=== PATIENT | male | born 1930 | race Caucasian/White ===

== ENCOUNTER 2018-07-28 10:14 | Inpatient (IN) ==
[2018-07-28 10:34] VITALS: BMI 14.3
--- NOTE | 2018-07-28 11:04 | ED.PDOC ---
General ED Provider: Dr. SHAYAN WATERS Chief Complaint: Weakness Stated Complaint: Weakness; short of air; left flank pain; hx of CA. Brought in by son ...has tried to keep at home as long as possible Time Seen by Physician: 10:15 Mode of Arrival: Wheelchair Information Source: Family Primary Care Provider: KAMERON CARLSON Nursing and Triage Documentation Reviewed and Agree: Yes Does patient meet sepsis criteria?: No System Inflammatory Response Syndrome: Not Applicable Sepsis Protocol: For patient's 13 years and over: Temp is 96.8 and below OR 101 and greater Pulse >90 BPM Resp >20/minute Acutely Altered Mental Status Are patient's symptoms suggestive of a new infection, such as: -Pneumonia -Skin, Soft Tissue -Endocarditis -UTI -Bone, Joint Infection -Implantable Device -Acute Abdominal Infection -Wound Infection -Meningitis -Blood Stream Catheter Infection -Unknown Respiratory Complaint Exam - Shortness of Air Complaint/Exam Onset/Duration: Steady decline for several months; son has tried to keep at home. Symptoms Are: Still present Timing: Constant Initial Severity: Moderate Current Severity: Moderate Character: Reports: Dyspnea at rest, Dyspnea on exertion Aggravating: Reports: Movement Alleviating: Reports: None Review of Systems - Review Of Systems Constitutional: Reports: Malaise, Weakness Respiratory: Reports: Short of air Cardiac: Reports: No symptoms Musculoskeletal: Reports: Back pain All Other Systems: Reviewed and Negative Past Medical History - Past Medical History Previously Healthy: No (Declining state of health; R lung mass) Endocrine: Reports: None Cardiovascular: Reports: None Respiratory: Reports: None (R upper lung mass), Unknown Hematological: Reports: None Gastrointestinal: Reports: None Genitourinary: Reports: Other (BPH) Neuro/Psych: Reports: None Musculoskeletal: Reports: None Cancer: Reports: Lung (Probable) - Surgical History General Surgical History: Reports: None - Family History Family History: Reports: Unknown - Social History Smoking Status: Current every day smoker, Heavy tobacco smoker Hx Substance Use: No Alcohol Screening: None Physical Exam - Physical Exam Appearance: Well-appearing (Hard of Hearing), Thin Ill-appearing: Mild Pain Distress: None Eyes: VIPIN ENT: Oropharynx normal Neck: Supple Respiratory: Airway patent, Breath sounds clear, Respirations nonlabored Cardiovascular: RRR, Pulses normal GI/: Soft, Nontender Musculoskeletal: Normal strength, ROM intact Skin: Warm, Dry Neurological: Sensation intact, Motor intact, Alert Psychiatric: Affect appropriate, Mood appropriate (pleasant; cooperative) Interpretation - Radiology Interpretation Radiology Interpretation By: Radiologist Xray Comments: Right suprahilar mass may be increased from prior. Emphysemia - EKG Interpretation Time of EKG #1: 10:42 Rate: Normal Rhythm: Sinus Ectopy: PVCs (Occaional) ST Segment: Other (ST elevation Lead II and III) Physician Notification - Case Discussed Physician Notified: Dr Carlson Time of Notification: 12:50 (Discussed admission) Critical Care Note - Critical Care Note Total Time (mins): 35 Comments: Review of labs, EKG, Chest XRay, DNR status and discussion with attending for admission Course - Course Hematology/Chemistry: 07/28/18 11:05 07/28/18 11:05 Orders, Labs, Meds: Lab Review 07/28/18 07/28/18 07/28/18 10:39 11:05 11:05 WBC 9.34 RBC 5.03 Hgb 15.8 Hct 50.0 MCV 99.4 H MCH 31.4 H MCHC 31.6 L RDW Coeff of Seamus 14.5 Plt Count 290 Immature Gran % (Auto) 1.8 Neut % (Auto) 84.5 Lymph % (Auto) 6.6 L [place] % (Auto) 6.9 Eos % (Auto) 0.0 Baso % (Auto) 0.2 Immature Gran # (Auto) 0.2 Neut # (Auto) 7.9 H Lymph # (Auto) 0.6 [place] # (Auto) 0.6 Eos # (Auto) 0.0 Baso # (Auto) 0.0 Puncture Site R brach O2 Saturation 96.0 ABG pH 7.47 H ABG pCO2 39.1 ABG pO2 78.0 L ABG HCO3 28.7 H ABG Total CO2 30 H ABG Base Excess 5 H Cam Test + FiO2 % 21.0 Sodium 146.4 H Potassium 4.20 Chloride 106.9 Carbon Dioxide 36.2 H Anion Gap 7.50 BUN 45.5 H Creatinine 1.26 H Estimated GFR (MDRD) 54.00 BUN/Creatinine Ratio 36.11 Glucose 155.5 H Calcium 9.72 Total Bilirubin 0.61 AST 71.3 H ALT 56.9 H Alkaline Phosphatase 113.6 Troponin I 0.055 Total Protein 6.54 Albumin 3.27 L Globulin 3.27 Albumin/Globulin Ratio 1.00 Orders Category Date Time Status ADMIT PATIENT INPATIENT .TO MEDS[facility] (MONITORED BED) ADMISSION 07/28/18 12: 40 Active ABG DRAW REQUEST Routine CARDIO 07/28/18 10:39 Completed EKG-(ED ONLY) Stat CARDIO 07/28/18 10:28 Completed EKG-(IP & OP ONLY) DAILY CARDIO 07/29/18 06:00 Ordered EKG-(IP & OP ONLY) DAILY CARDIO 07/30/18 06:00 Ordered OXYGEN Routine CARDIO 07/28/18 12:43 Active ACTIVITY .Complete BR CARE 07/28/18 12:41 Active TELEMETRY MONITORING TELE CARE 07/28/18 12:41 Active VITAL SIGNS Q8HR CARE 07/28/18 12:41 Active ABG Stat LAB 07/28/18 10:39 Completed BLOOD CULTURE (ED ONLY) Stat LAB 07/28/18 12:50 Received BLOOD CULTURE Stat LAB 07/28/18 12:50 Received CBC W/ AUTO DIFF DAILY@0600 LAB 07/29/18 06:00 Ordered CBC W/ AUTO DIFF DAILY@0600 LAB 07/30/18 06:00 Ordered CBC W/ AUTO DIFF Stat LAB 07/28/18 11:05 Completed COMPREHENSIVE METABOLIC PANEL DAILY@0600 LAB 07/29/18 06:00 Ordered COMPREHENSIVE METABOLIC PANEL DAILY@0600 LAB 07/30/18 06:00 Ordered COMPREHENSIVE METABOLIC PANEL Stat LAB 07/28/18 11:05 Completed TROPONIN I Q8H LAB 07/28/18 11:05 Received TROPONIN I Q8H LAB 07/29/18 02:45 Ordered TROPONIN I Stat LAB 07/28/18 11:05 Completed URINALYSIS C & S IF INDICATED Stat LAB 07/28/18 10:27 Uncollected Tamsulosin HCl [Flomax] MEDS 07/28/18 21:00 Active 0.4 mg PO BEDTIME CHEST, 1V AP ONLY Stat RADS 07/28/18 10:28 Completed Medications Generic Name Dose Route Start Last Admin Trade Name Freq PRN Reason Stop Dose Admin Sodium Chloride 1,000 mls @ 100 mls/hr 07/28/18 13:30 Sodium Chloride IV .Q10H JEVON Tamsulosin HCl 0.4 mg 07/28/18 21:00 Flomax PO BEDTIME JEVON Vital Signs: Temp Pulse Resp BP Pulse Ox 07/28/18 10:17 98.3 F 78 20 76/47 L 68 L Departure - Departure Time of Disposition: 13:00 Disposition: ADMITTED INPATIENT Discharge Problem: Dehydration, Failure to thrive Condition: Stable Pt referred to PMD for follow-up: Yes (Follow up as needed) IPMP verified?: No (NA) Allergies/Adverse Reactions: Allergies No Known Allergies Allergy (Unverified 07/28/18 13:03) Home Medications: Ambulatory Orders Tamsulosin HCl [Flomax] 0.4 mg PO BEDTIME 07/28/18
--- NOTE | 2018-07-28 11:06 | DI ---
EXAM: Chest one view HISTORY: Short of air COMPARISON: 10/13/2017 TECHNIQUE: Single view of the chest was performed FINDINGS: Redemonstration of a right suprahilar mass that may be increased. Heart mildly enlarged. This appears increased from prior examination, this may be accentuated by position. Cannot exclude pericardial effusion. Atherosclerosis. Trace right pleural effusion. No visible pneumothorax. No de finite airspace consolidation. Emphysema. IMPRESSION: 1. Redemonstration of right suprahilar mass that may be increased. 2. Heart mildly enlarged. This appears increased from prior examination, this may be accentuated by position. Cannot exclude pericardial effusion. 3. Trace right pleural effusion. 4. Emphysema.
[2018-07-28] MEDS: SODIUM CHLORIDE 1,000 ML IV SCH (14:11)
--- NOTE | 2018-07-28 16:46 | CT ---
EXAM: CT of the abdomen pelvis without contrast History: Abdominal pain. Left flank pain Comparison: CT abdomen pelvis 07/07/2012 Technique: Multiplanar CT images through the abdomen pelvis were obtained without the administration of IV contrast Findings: Limited evaluation without IV contrast. Emphysema seen within the lower lungs. Small bilat eral pleural effusions. There is body wall edema. No acute osseous abnormalities. Osteopenia. Larg e pericardial effusion. A few small hepatic cysts. Calcified granulomas within the spleen. No renal stones and no hydroneph rosis. There is mesenteric edema. Bifurcating abdominal aortic stent graft. The aneurysm sac measu res 7.3 cm in caliber. Cannot evaluate for endoleak without IV contrast. No bladder wall thickening . Prostatic calcifications. There are mildly distended loops of both large and small bowel. There is a left inguinal hernia containing bowel loops extending into the scrotum. No free air. Impression: 1. Left inguinal hernia containing bowel extending into the scrotum. Cannot exclude early partial b owel obstruction as the are mildly dilated loops of both large and small bowel present. Follow-up re commended. 2. 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 Cannot evalu ate for endoleak without IV contrast. 3. Large pericardial effusion. 4. Body wall edema and mesenteric edema. 5. Small bilateral pleural effusions.
[2018-07-29] MEDS ORDERED: HALDOL IM STA (00:14)
[2018-07-29] MEDS: FLOMAX PO SCH ×2 (00:19→23:16)
[2018-07-29] MEDS: SODIUM CHLORIDE 1,000 ML IV SCH ×2 (01:11→16:21)
[2018-07-29] MEDS: NICODERM 21 MG TD SCH (08:35)
[2018-07-30] MEDS: SODIUM CHLORIDE 1,000 ML IV SCH ×4 (01:15→20:44)
[2018-07-30] MEDS: NICODERM 21 MG TD SCH (08:30)
[2018-07-30] MEDS ORDERED: LANOXIN IVP STA (13:27)
[2018-07-30] MEDS: CARDIZEM PO SCH ×3 (13:40→20:44)
[2018-07-30] MEDS ORDERED: LANOXIN IVP ONE (14:45)
[2018-07-30] MEDS: FLOMAX PO SCH (20:44)
[2018-07-31] MEDS: SODIUM CHLORIDE 1,000 ML IV SCH ×3 (02:40→09:50)
[2018-07-31] MEDS: NICODERM 21 MG TD SCH (09:02)
[2018-07-31] MEDS: CARDIZEM PO SCH ×2 (09:02→14:14)
[2018-07-31 09:50] VITALS: TEMP 98.4
--- NOTE | 2018-07-31 09:58 | PCM.PROG ---
Attending Provider: ATTENDING PROVIDER: Dr. KAMERON CARLSON This patient is seen with Vickie Ortiz, Nurse Practitioner. DATE OF SERVICE: 07/31/18 SUBJECTIVE: This 87 year old WHITE/ M was hospitalized 07/28/18. The patient is lying in bed resting comfortably. He had an episode of atrial fibrillation with RVR yesterday, rate controlled today in sinus rhythm. He has had some hypotension, still not eating well. Speech consult today. REVIEW OF SYSTEMS: CONSTITUTIONAL: Weakness. No night sweats. No malaise, lethargy. No fever or chills. HEENT: Eyes: No visual changes. No eye pain. No eye discharge. ENT: No runny nose. No epistaxis. No sinus pain. No odynophagia. No congestion. RESPIRATORY: Cough and congestion. No hemoptysis. No shortness of breath. CARDIOVASCULAR: No angina symptoms. No CHF symptoms. No atypical chest pain for CAD. No palpitations. No orthopnea.. GASTROINTESTINAL: No abdominal pain. No nausea or vomiting. No diarrhea or constipation. No hematemesis. No hematochezia. GENITOURINARY: No urgency. No frequency. No dysuria. No hematuria. No obstructive symptoms. No discharge. No pain. No significant abnormal bleeding. MUSCULOSKELETAL: No musculoskeletal pain; no joint swelling. NEUROLOGICAL: Resting comfortably. No headache. No neck pain. No syncope. No seizures. No dizziness. PSYCHIATRIC: Not anxious. No depression. No suicidal thoughts. No homicidal thoughts. SKIN: No rash. No lesions. No wounds. ENDOCRINE: No unexplained weight loss. No weight gain. HEMATOLOGIC/LYMPHATIC: No anemia. No purpura. No petechiae. No prolonged or excessive bleeding. No palpable lymph nodes. PHYSICAL EXAMINATION: GENERAL: The patient is resting, lying in bed in no distress. VITAL SIGNS: Temperature 97.9 F, Pulse 68, Respiratory Rate 22, BP 95/69, Pulse Ox 96% HEENT: Head normocephalic, atraumatic. Eyes: Extraocular muscles are intact. Pupils are equal, round and reactive to light and accommodation. Ears: No lesions. Nose appeared normal. Throat: No exudate or erythema. NECK: Supple. No JVD, no carotid bruit. No lymphadenopathy or thyromegaly. LUNGS: Diminished breath sounds with upper airway congestion. Percussion note normal. Chest symmetrical. HEART: S1, S2, no S3. No murmurs. No cyanosis or clubbing. No ascites. Pulses: Dorsalis pedis and posterior tibial pulses +1 to +2 both sides. ABDOMEN: Soft. Non-tender. Bowel sounds active. No CVA tenderness. No mass felt. EXTREMITIES: No edema. Full range of motion of all extremities, equal. NEUROLOGIC: No focal deficit. Cranial nerves II through XII are grossly intact. No headache, no double vision or headache. SKIN: Not dry. Intact. Turgor-normal. LYMPHATIC: No palpable lymph nodes/no lymphedema. MUSCULOSKELETAL: Normal joints with no swelling. Muscle tone is normal. LAB REVIEW: 07/31/18 06:29 07/31/18 06:29 07/31/18 06:29: Sodium 139.1, Potassium 3.93, Chloride 106.9, Carbon Dioxide 33.8 H, Anion Gap 2.33, BUN 28.6 H, Creatinine 0.94, Estimated GFR (MDRD) 76.00 , BUN/Creatinine Ratio 30.42, Glucose 102.0, Calcium 8.48, Total Bilirubin 0.45 , AST 44.8, ALT 50.4 H, Alkaline Phosphatase 82.2, Total Protein 5.48 L, Albumin 2.56 L, Globulin 2.92, Albumin/Globulin Ratio 0.87 07/31/18 06:29: WBC 7.29, RBC 4.01 L, Hgb 12.6 L, Hct 40.2 L, MCV 100.2 H, MCH 31.4 H, MCHC 31.3 L, RDW Coeff of Seamus 14.3, Plt Count 196, Immature Gran % (Auto ) 1.6, Neut % (Auto) 78.7, Lymph % (Auto) 8.4 L, [place]Brien % (Auto) 10.8 H, Eos % ( Auto) 0.4, Baso % (Auto) 0.1, Immature Gran # (Auto) 0.1, Neut # (Auto) 5.7, Lymph # (Auto) 0.6, [place] # (Auto) 0.8, Eos # (Auto) 0.0, Baso # (Auto) 0.0 ASSESSMENT: 1. DEHYDRATION - IMPROVING 2. FAILURE TO THRIVE 3. RIGHT HILAR MASS 4. HYPOTENSION PLAN: 1. Decrease IV fluids to 75 mL/hr. 2. The patient does not want any further intervention. The main goal is to be with his at [facility]. He has known about his lung cancer for some time and declined treatment. He declines treatment for any further medical problems. Plan and coordination of the patient's care discussed in the presence of [facility] Nurse and nurse. CONDITION: Stable SCRIBED BY: ADOLFO PAGE Product Steward scribed while in presence of service performed by Dr. Carlson/Vickie Ortiz APRN on 07/31/18 ([id number])
[2018-07-31] MEDS ORDERED: SODIUM CHLORIDE 1,000 ML IV SCH (10:00)
[2018-07-31] MEDS ORDERED: ULTRAM PO PRN (11:29)
[2018-07-31] MEDS ORDERED: ULTRAM ONE (11:40)
--- NOTE | 2018-07-31 13:35 | CM.DICTOOL ---
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 CONTINUED TOBACCO USE, HEAVY LAST VITALS Temp Pulse Resp BP Pulse Ox 98.4 F 63 18 108/73 93 L 07/31/18 09:49 07/31/18 09:49 07/31/18 09:49 07/31/18 09:49 07/31/18 10:00 TAKE THESE MEDICATIONS AT THE SENIOR LIVING Diltiazem HCl (Cardizem) 30 mg PO TID [facility] Last Admin: 07/31/18 09:02 Dose: 30 mg Tamsulosin HCl (Flomax) 0.4 mg PO BEDTIME [facility] Last Admin: 07/30/18 20:44 Dose: 0.4 mg Tramadol HCl (Ultram) 50 mg PO TID PRN PRN Reason: Analgesia Last Admin: 07/31/18 11:42 Dose: 50 mg ALLERGIES No Known Allergies Allergy (Unverified 07/28/18 13:03) NEW PRESCRIPTIONS: Diltiazem HCl [Cardizem] 30 mg PO TID #90 tablet 07/31/18 Tramadol HCl [Ultram] 50 mg PO Q8H PRN #90 tablet 07/31/18 SMOKING: CURRENT HEAVY SMOKER THE PATIENT IS AWARE OF THE ADDED RISK CONTINUATION OF SMOKING POSES TO HER CARDIOPULMONARY HEALTH. HE IS AWARE OF THE BENEFITS OF COMPLETE CESSATION WELL. HE HAS NOT VERBALIZED ANY INTENTION TO STOP SMOKING. WE WILL CONTINUE TO PROVIDE ENCOURAGEMENT AND REINFORCEMENT OF PRIOR TEACHING FOR COMPLETE SMOKING CESSATION. DISEASE SPECIFIC EDUCATION: DEHYDRATION FAILURE TO THRIVE PAROXYSMAL A-FIB WITH RVR HYPOTENSION INCREASING RIGHT SUPRAHILAR LUNG MASS (FAMILY) EMPHYSEMA ANEURYSMAL SAC AT THE AAA GRAFT SITE 7.3 CM'S (FAMILY) LAB REVIEW: 07/31/18 06:29 07/31/18 06:29 07/31/18 06:29: Sodium 139.1, Potassium 3.93, Chloride 106.9, Carbon Dioxide 33.8 H, Anion Gap 2.33, BUN 28.6 H, Creatinine 0.94, Estimated GFR (MDRD) 76.00 , BUN/Creatinine Ratio 30.42, Glucose 102.0, Calcium 8.48, Total Bilirubin 0.45 , AST 44.8, ALT 50.4 H, Alkaline Phosphatase 82.2, Total Protein 5.48 L, Albumin 2.56 L, Globulin 2.92, Albumin/Globulin Ratio 0.87 07/31/18 06:29: WBC 7.29, RBC 4.01 L, Hgb 12.6 L, Hct 40.2 L, MCV 100.2 H, MCH 31.4 H, MCHC 31.3 L, RDW Coeff of Seamus 14.3, Plt Count 196, Immature Gran % (Auto ) 1.6, Neut % (Auto) 78.7, Lymph % (Auto) 8.4 L, [place] % (Auto) 10.8 H, Eos % ( Auto) 0.4, Baso % (Auto) 0.1, Immature Gran # (Auto) 0.1, Neut # (Auto) 5.7, Lymph # (Auto) 0.6, [place] # (Auto) 0.8, Eos # (Auto) 0.0, Baso # (Auto) 0.0 PLAN: [facility], 07/31/18 MEDICATIONS: DILTIAZEM HCL (CARDIZEM) 30 MG PO TID SCHEDULED TAMSULOSIN HCL (FLOMAX) 0.4 MG PO AT BEDTIME SCHEDULED TRAMADOL HCL (ULTRAM) 50 MG PO TID PRN PAIN ACTIVITIES MAY PARTICIPATE IN SENIOR LIVING ACTIVITY PROGRAM TOLERATED PT/OT PLEASE EVALUATE AND TREAT INDICATED DIET REGULAR TOLERATED ASPIRATION PRECAUTIONS VS TWICE DAILY OTHER OXYGEN TO KEEP SATS GREATER THAN OR EQUAL TO 91% (2L/NC) PULSE OXIMETRY PRN SUMMARY THE PATIENT IS ALERT AND ORIENTED X3. HIS HEARING IS IMPAIRED BUT HE IS ABLE TO MAKE HIS WANTS AND NEEDS KNOWN. HIS DAUGHTER, MADDIE NGUYEN/POA, ASSISTS WITH DECISION MAKING. HE HAS BEEN LIVING AT HOME ALONE. HE HAS BECOME MORE WEAKENED AND DEPENDENT ON OTHERS FOR ADL'S. HE HAS DECIDED HE WOULD LIKE TO BE [facility] WHERE HIS SPOUSE IS ALSO A RESIDENT. FAMILY ARE AWARE AND ARE AGREEABLE TO ABIDE BY HIS WISHES. THE SKIN TURGOR IS INTACT BUT IS THIN AND BECOMING FRAGILE. NUTRITIONAL AND HYDRATION STATUS HAVE IMPROVED SINCE ADMISSION. HOWEVER, THE PATIENT'S APPETITE WAXES AND WANES. HE AND THE DAUGHTER/POA WOULD LIKE FOR HIM TO BE ABLE TO EAT WHAT HE IS ABLE TO TOLERATE RATHER THAN TO FOLLOW A TEXTURE/ CONSISTENCY RECOMMENDATION. WE WILL ABIDE BY THE PATIENT'S WISHES IN AN EFFORT TO IMPROVE HIS NUTRITIONAL STATUS. WE WILL REQUEST CARE BE TAKEN TO PREVENT ASPIRATION DURING HIS SENIOR LIVING STAY. THE PATIENT AND FAMILY WOULD LIKE FOR THE PATIENT TO BE ABLE TO BECOME STRONGER. A PT/OT EVALUATION HAS BEEN REQUESTED FOR POSSIBLE SERVICES AT THE SENIOR LIVING. WE WILL FOLLOW MR. HERNANDEZ DURING HIS STAY AT [facility]. CURRENT CODE STATUS DO NOT RESUSCITATE RUBEN MORIN APRN KAMERON CARLSON M.D.
[2018-07-31 14:42] VITALS: BP 100/67
--- NOTE | 2018-08-02 13:31 | DS ---
DATE OF SERVICE: 07/31/18 FINAL DIAGNOSIS: 1. DEHYDRATION, IMPROVING 2. FAILURE TO THRIVE 3. CARDIOMEGALY, MILD 4. LARGE PERICARDIAL EFFUSION PER CT ABD/PELVIS, 07/28/18 5. SMALL BILATERAL PLEURAL EFFUSIONS 6. BODY WALL AND MESENTERIC EDEMA 7. PAROXYSMAL ATRIAL FIBRILLATION WITH RAPID VENTRICULAR RATE (13-140'S) 8. HYPOTENSION 9. INTERMITTENT CONFUSION 10. RIGHT SUPRAHILAR LUNG MASS, INCREASING PER CHEST X-RAY AT [facility] 07/28/18 11. EMPHYSEMA 12. BPH 13. LARGE LEFT INGUINAL HERNIA 14. AAA STENT, 6 YEARS AGO 15. 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 CONTINUED TOBACCO USE, HEAVY LAST VITAL SIGNS: Temperature 98.4, pulse 63, respiratory rate 18, BP 108/73, pulse ox 93L. DISCHARGE INSTRUCTIONS: 1. Discharge to [facility] today, 07/31/18. 2. Vital signs twice daily. 3. Oxygen to keep sats greater than or equal to 91% (2L/NC) 4. Pulse oximetry p.r.n. MEDICATIONS AT DISCHARGE: Diltiazem (Cardizem) 30 mg p.o. t.i.d. JEVON Tamsulosin (Flomax) 0.4 mg p.o. bedtime JEVON Tramadol (Ultram) 50 mg p.o. t.i.d. p.r.n. NEW PRESCRIPTIONS: Diltiazem 30 mg p.o. t.i.d. Tramadol 50 mg p.o. q.8h p.r.n. DIET INSTRUCTIONS: Regular as tolerated. Aspiration precautions. ACTIVITY: May participate in snf activity program as tolerated. PT/OT please evaluate and treat as indicated. SMOKING: Current heavy smoker. The patient is aware of the added risk continuation of smoking poses to her cardiopulmonary health. He is aware of the benefits of complete cessation as well. He has not verbalized any intention to stop smoking. We will continue to provide encouragement and reinforcement of prior teaching for complete smoking cessation. 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 We see his in the snf. He use to see Dr. Garcia as a medical provider, was diagnosed with lung cancer, didn't go to the doctor for some time. He came into the emergency room, was dehydrated. He had been unable to eat for several days. He had developed diarrhea because he had taken too many laxatives for constipation. CT of the chest revealed that he had a large pericardial effusion with a right hilar lung mass which has increased in size. CT of the abdomen showed large left inguinal hernia. He had an aortic stent 6 years ago and a graft site is now 7.3 cm. He is a heavy tobacco smoker. All of this was explained to him in detail. He is alert and oriented times three. He was admitted, placed on IV fluids, NS at 83 cc/hr. BUN and creatinine were significantly elevated on admission. BUN of 39. Over the course of several days with slow IV fluids, his kidney function improved. We started him on Protonix. Yesterday, he developed atrial fibrillation with rapid ventricular rate. He was given a one time dose of Digoxin, converted back to normal sinus rhythm. Dr. Peraza placed him on Cardizem 30 mg t.i.d. He has been somewhat hypotensive with blood pressure lowest 94/60 so we continued his IV fluids increased at 100. This morning his kidney function is normal. His blood pressure is 108/73. He is alert and oriented times three. All of his medical conditions have been discussed with both he and his daughter who is the POA in great detail. They decline any further medical treatment for the pericardial effusion as well as the aneursym along with the lung cancer. Both he and his daughter state that he is too old to do any sort of medical treatment. He does not want to know the prognosis. He wants to go to the snf at [facility] and be with his who is a resident there, whom we also see. The nurse discussed in detail with the daughter, who is the POA by herself. She definitely understands all of his medical conditions, that is failing to thrive at this time, that hospice or at least paliative care is somewhere in the very near future for them. She again declines any further medical treatment for the pericardial effusions, pleural effusions. They decline any sort of blood thinner for the atrial fibrillation. No treatment for lung cancer. They decline any sort of referral for oncology or pulmonology, decline any surgical referral for the inguinal hernia, any sort of vascular referral they decline for the aneurysm site of 7.3 cm so they all have decided that it is best to try and preserve his quality of life as best they can and we are all in agreement with this. He is stable today. He has been eating about 50% of his meals. He has been up and about. He wishes to go to the snf. He wishes to continue smoking. This has all been discussed with him. He has not complained of pain until last night and started him on Ultram 50 mg t.i.d. p.r.n. He will go to snf with this. Again, labs look stable. White count 7.2, hemoglobin 12.6, hematocrit 40.2, platelets 196. BUN improved at 28, creatinine 0.9, sodium 139, potassium 3.9. He is going to [facility] on Cardizem 30 mg t.i.d., Flomax at bedtime and Ultram 50 mg p.o. t.i.d. p.r.n. I will continue to follow him there. He will have a repeat CBC and CMP in one week. Again, both the patient and family demonstrate understanding. The patient will continue to be a DNR at the snf. TIME SPENT: More than 60 minutes. JAYLEN
--- NOTE | 2018-08-02 13:40 | PN ---
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 The patient is DNR, demented. He is not restless like what he was. He is not coughing like a couple of days ago when he was hospitalized. REVIEW OF SYSTEMS: CONSTITUTIONAL: No night sweats. No fatigue, malaise, lethargy. No fever or chills. HEENT: Eyes: No visual changes. No eye pain. No eye discharge. ENT: No runny nose. No epistaxis. No sinus pain. No sore throat. No odynophagia. No congestion. RESPIRATORY: No cough, no congestion. No hemoptysis. No shortness of breath. CARDIOVASCULAR: No angina symptoms. No CHF symptoms. No atypical chest pain for CAD. No palpitations. No orthopnea. GASTROINTESTINAL: No abdominal pain. No nausea or vomiting. No diarrhea or constipation. No hematemesis. No hematochezia. GENITOURINARY: No urgency. No frequency. No dysuria. No hematuria. No obstructive symptoms. No discharge. No pain. No significant abnormal bleeding. MUSCULOSKELETAL: No musculoskeletal pain; no joint swelling. NEUROLOGICAL: Confusion. No headache. No neck pain. No syncope. No seizures. No dizziness. PSYCHIATRIC: Not anxious. No depression. No suicidal thoughts. No homicidal thoughts. SKIN: No rash. No lesions. No wounds. ENDOCRINE: No unexplained weight loss. No weight gain. HEMATOLOGIC/LYMPHATIC: No anemia. No purpura. No petechiae. No prolonged or excessive bleeding. No palpable lymph nodes. PHYSICAL EXAMINATION: VITAL SIGNS: Temperature 97.8, pulse 70, respiratory rate 20, BP 90/66, pulse ox 100% on 2L. HEENT: Head normocephalic, atraumatic. Eyes: Extraocular muscles are intact. Pupils are equal, round and reactive to light and accommodation. Ears: No lesions. Nose appeared normal. Throat: No exudate or erythema. NECK: Supple. No JVD, no carotid bruit. No lymphadenopathy or thyromegaly. LUNGS: Decreased breath sounds. Clear to auscultation. Percussion note normal. Chest symmetrical. HEART: S1, S2, no S3. No murmurs. No cyanosis or clubbing. No ascites. Pulses: Dorsalis pedis and posterior tibial pulses +1 to +2 both sides. ABDOMEN: Soft. The patient is emaciated with BMI of 14. Bowel sounds active. No CVA tenderness. No mass felt. EXTREMITIES: No edema. Full range of motion of all extremities, equal. NEUROLOGIC: No focal deficit. Cranial nerves II through XII are grossly intact. No headache, no double vision or headache. SKIN: Not dry. Intact. Turgor - normal. LYMPHATIC: No palpable lymph nodes/no lymphedema. MUSCULOSKELETAL: Normal joints with no swelling. Muscle tone is normal. LABS: Hemoglobin 12.2, hematocrit 40, WBC 6,200, normal differential. Creatinine 1, BUN 36, potassium 4. ASSESSMENT/PLAN: 1. END-STAGE CHRONIC LUNG DISEASE WITH CA OF THE LUNG 2. DEMENTIA 3. THIS MORNING THE PATIENT HAD A RATE OF 130 TO 140 WITH ATRIAL FIB, PAT LIKELY AND HAS BEEN GIVEN LANOXIN 0.25 TWO TIMES, A TOTAL OF 0.5 WITH 30 MG CARDIZEM T.I.D. THE PATIENT'S BLOOD PRESSURE IS BORDERLINE SO UNABLE TO PUSH ANY MORE MEDICATION TO SLOW HIS VENTRICULAR RESPONSE. IN ANY CASE, HE IS COMFORTABLE. HE IS DNR. WILL CONTINUE TO MONITOR HIM. 4. THE PATIENT IS ON STEROIDS, OXYGEN, NEBS. CONDITION: STABLE TIME SPENT: More than 30 minutes. Plan and coordination of the patient's care discussed in the presence of nurse. JAYLEN
--- NOTE | 2018-08-02 13:47 | PN ---
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 The patient has dementia, unable to swallow properly, unable to evaluate his status properly because the patient is unable to follow instruction at the present time. The patient at night was very restless, took the IV's out and telemetry out. He was given Haldol and after that he has slept well. REVIEW OF SYSTEMS: CONSTITUTIONAL: No night sweats. No fatigue, malaise, lethargy. No fever or chills. HEENT: Eyes: No visual changes. No eye pain. No eye discharge. ENT: No runny nose. No epistaxis. No sinus pain. No sore throat. No odynophagia. No congestion. RESPIRATORY: No cough, no congestion. No hemoptysis. No shortness of breath. CARDIOVASCULAR: No angina symptoms. No CHF symptoms. No atypical chest pain for CAD. No palpitations. No orthopnea. GASTROINTESTINAL: No abdominal pain. No nausea or vomiting. No diarrhea or constipation. No hematemesis. No hematochezia. GENITOURINARY: No urgency. No frequency. No dysuria. No hematuria. No obstructive symptoms. No discharge. No pain. No significant abnormal bleeding. MUSCULOSKELETAL: No musculoskeletal pain; no joint swelling. NEUROLOGICAL: Sleepy, disoriented, not in distress. No headache. No neck pain. No syncope. No seizures. No dizziness. PSYCHIATRIC: Not anxious. No depression. No suicidal thoughts. No homicidal thoughts. SKIN: No rash. No lesions. No wounds. ENDOCRINE: No unexplained weight loss. No weight gain. HEMATOLOGIC/LYMPHATIC: No anemia. No purpura. No petechiae. No prolonged or excessive bleeding. No palpable lymph nodes. PHYSICAL EXAMINATION: GENERAL: The patient is sleepy, disoriented, not in distress. VITAL SIGNS: Temperature 97.1, pulse 60, respiratory rate 18, BP 127/81, pulse ox 100%. HEENT: Head normocephalic, atraumatic. Eyes: Extraocular muscles are intact. Pupils are equal, round and reactive to light and accommodation. Ears: No lesions. Nose appeared normal. Throat: No exudate or erythema. NECK: Supple. No JVD, no carotid bruit. No lymphadenopathy or thyromegaly. LUNGS: Decreased breath sounds with mild wheeze. Percussion note normal. Chest symmetrical. HEART: S1, S2, no S3. No murmurs. No cyanosis or clubbing. No ascites. Pulses: Dorsalis pedis and posterior tibial pulses +1 to +2 both sides. ABDOMEN: Soft. Nontender. Bowel sounds active. No CVA tenderness. No mass felt. EXTREMITIES: No edema. Full range of motion of all extremities, equal. NEUROLOGIC: No focal deficit. Cranial nerves II through XII are grossly intact. No headache, no double vision or headache. SKIN: Not dry. Intact. Turgor - normal. LYMPHATIC: No palpable lymph nodes/no lymphedema. MUSCULOSKELETAL: Normal joints with no swelling. Muscle tone is normal. ASSESSMENT: 1. CA OF THE LUNG WITH METS 2. DEMENTIA 3. CHRONIC LUNG DISEASE 4. DIFFICULTY SWALLOWING The patient is DNR. The patient had questionable rise in troponin with the abnormal EKG but I think EKG shows ST elevation with J-junction on inferior leads, unchanged EKG from yesterday. I don't think the patient had acute myocardial event. PLAN: 1. Restart the IV with hydration. 2. Will evaluate his swallowing status which would be done on Tuesday, that is day after tomorrow. Until that will give pureed thickened liquids. The patient has chronic cough with aspiration. TIME SPENT: More than 30 minutes. Plan and coordination of the patient's care discussed in the presence of nurse. JAYLEN
--- NOTE | 2018-08-02 13:50 | PN ---
DATE OF SERVICE: 07/28/18 SUBJECTIVE: The patient was seen and examined in the room. The patient is coughing more or less constantly, seems like aspiration is causing the cough. He is unable to swallow properly. He seems to be oriented to place but not to person. The patient was seen and examined with the nurse practitioner and History and Physical was done. The patient has end-stage chronic lung disease with CA of the lung with right hilar mass. The patient's family and the patient had decided not to pursue any further treatment. The patient is DNR. Hospice is under consideration. TIME SPENT: More than 30 minutes. Plan and coordination of the patient's care discussed in the presence of nurse. JAYLEN
--- NOTE | 2018-08-03 11:56 | HP ---
DATE OF SERVICE: 07/28/18 HISTORY OF PRESENT ILLNESS: This is an 87-year-old white male who is a new patient to us. He has been residing at home alone. He in the past has seen Dr. Garcia but hasn't seen him for some time. He has a known right upper lobe lung cancer for which he declines any treatment. He is brought to the emergency room today because he has been suffering from constipation, was drinking a lot of Milk of Magnesia, self medicating at home and now has developed diarrhea, is extremely weak. We have agreed to take care of him as his end result would like to be to go to the detention, [facility] to be with his , Mariln, who is our patient at the detention. PAST MEDICAL HISTORY: Right lung mass - he declines any treatment Hypertension - he declines any treatment BPH COPD Heavy tobacco smoker Decline in function PAST SURGICAL HISTORY: Not known REVIEW OF SYSTEMS: CONSTITUTIONAL: Positive for weakness, decline in function. No night sweats. No malaise, lethargy. No fever or chills. HEENT: Eyes: No visual changes. No eye pain. No eye discharge. ENT: No runny nose. No epistaxis. No sinus pain. No sore throat. No odynophagia. No ear pain. No congestion. RESPIRATORY: Positive for cough and shortness of breath. No hemoptysis. CARDIOVASCULAR: No angina symptoms. No CHF symptoms. No atypical chest pain for CAD. No palpitations. No PND. No orthopnea. GASTROINTESTINAL: Positive for nausea, diarrhea and constipation. No abdominal pain. No vomiting. No hematemesis. No hematochezia. GENITOURINARY: No urgency. No frequency. No dysuria. No hematuria. No obstructive symptoms. No discharge. No pain. No significant abnormal bleeding. MUSCULOSKELETAL: No musculoskeletal pain. No joint swelling. No arthritis. NEUROLOGICAL: No headache. No neck pain. No syncope. No seizures. No dizziness. PSYCHIATRIC: Not anxious. No depression. No suicidal thoughts. No homicidal thoughts. SKIN: No rash. No lesions. No wounds. ENDOCRINE: No unexplained weight loss. No weight gain. HEMATOLOGIC/LYMPHATIC: No anemia. No purpura. No petechiae. No prolonged or excessive bleeding. No palpable lymph nodes. PERSONAL/FAMILY/SOCIAL HISTORY: Family History - not known. Social History: He is a current heavy smoker. He is . His lives in [facility]. No alcohol or ilicit drug use. MEDICATIONS: (HOME) None ALLERGIES: NKDA PHYSICAL EXAMINATION: VITAL SIGNS: Temperature 98.3, pulse 78, respiratory rate 20, BP 76/47. HEENT: Head normocephalic, atraumatic. Eyes: Extraocular muscles are intact. Pupils are equal, round and reactive to light and accommodation. Ears: No lesions. Nose appeared normal. Throat: No exudate or erythema. NECK: Supple. No JVD, no carotid bruit. No lymphadenopathy or thyromegaly. LUNGS: Diminished breath sounds. Clear to auscultation. Percussion note normal. Chest symmetrical. HEART: S1, S2, no S3. No murmurs. No cyanosis or clubbing. No ascites. Pulses: Dorsalis pedis and posterior tibial pulses +1 to +2 bilaterally. ABDOMEN: Soft. Nontender. Bowel sounds active. No CVA tenderness. No mass felt. EXTREMITIES: No edema. Full range of motion of all extremities, equal. NEUROLOGIC: Bouts of confusion. No focal deficit. Cranial nerves II through XII are grossly intact. No headache, no double vision or headache. SKIN: Not dry. Intact. Turgor - normal. LYMPHATIC: No palpable lymph nodes/no lymphedema. MUSCULOSKELETAL: Normal joints with no swelling. Muscle tone is normal. RADIOLOGICAL DATA: CT scan shows bilateral pleural effusions, large pericardial effusion, body wall and mesenteric edema. Large left inguinal hernia. 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 LABS: 07/28/18 WBC 9.34, RBC 5.03, hemoglobin 15.8, hematocrit 50.0, MCV 99.4, MCH 31.4, MCHC 31.6, RDW Coeff Seamus 14.5, platelet count 290. Chemistries: Sodium 146.4, potassium 4.20, chloride 106.9, carbon dioxide 36.2, anion gap 7.50, BUN 45.5, creatinine 1.26, glucose 155.5, calcium 9.72, AST 71.3, ALT 56.9, alk phosphatase 113.6, troponin I 0.055, total protein 6.54, albumin 3.27. ABG's 02 sat 96%, pH 7.47, pc02 39.1, p02 78.0, HC03 28.7, c02 30, base excess 5, FI02 21.0. ASSESSMENT: 1. ACUTE DEHYDRATION 2. FAILURE TO THRIVE 3. RIGHT LUNG MASS 4. LARGE PERICARDIAL EFFUSIONS 5. BILATERAL PLEURAL EFFUSIONS 6. HYPOTENSION 7. RIGHT LUNG MASS PLAN: 1. We will admit. 2. CBC, CMP daily. 3. Routine telemetry orders. 4. Zofran 4 mg IV q.6hr. 5. Start on NS IV at 75 cc/hr. 6. Toradol 30 mg IV q.8hr p.r.n. for pain. The patient wishes to be a DNR. He knowingly has lung cancer and has declined any treatment. He does not wish for any further treatment of any other medical conditions. He would just like to get strong enough to go and be with his at the detention. There is no impaction on the CT scan of his abdomen. We will rehydrate him. Monitor his telemetry. He is very close to being considered for hospice or palliative care. He demonstrates understanding. Both he and the family understand the poor prognosis of his medical conditions and are in agreement with no aggressive medical treatment so we will follow him here. TIME SPENT: More than 70 minutes. JAYLEN
--- NOTE | 2018-08-03 13:43 | PN ---
DATE OF SERVICE: 07/31/18 SUBJECTIVE: The patient was seen and examined with Nurse Practitioner. The patient's condition is stable but prognosis is poor considering the patient's C of the lung. The patient has elected along with the family not to pursue anything further. The patient had atrial fibrillation which has converted to sinus rhythm. The patient's cardiovascular status is stable. TIME SPENT: More than 30 minutes. Plan and coordination of the patient's care discussed in the presence of nurse. JAYLEN
--- NOTE | 2018-08-03 13:44 | PN ---
: Level 5 07/29/18: Intermediate 07/30/18: Intermediate 07/31/18: D as in discharge MTDD
== END 2018-07-31 14:35 | DRG 641 ==
LOC: ED 10:14 → MEDSURG B 12:51
PROVIDERS: ADMIT Internal Medicine; ATTEND Internal Medicine
DX: E86.0 Dehydration (principal); I31.3 Pericardial effusion (noninflammatory); J90 Pleural effusion, not elsewhere classified; C34.01 Malignant neoplasm of right main bronchus; R06.02 Shortness of breath; R10.32 Left lower quadrant pain; R06.00 Dyspnea, unspecified; R62.7 Adult failure to thrive; R60.9 Edema, unspecified; R41.0 Disorientation, unspecified; R91.8 Other nonspecific abnormal finding of lung field; I51.7 Cardiomegaly; I48.0 Paroxysmal atrial fibrillation; I95.9 Hypotension, unspecified; J43.9 Emphysema, unspecified; J98.4 Other disorders of lung; F03.90 Unspecified dementia, unspecified severity, without behavioral disturbance, psychotic disturbance, mood disturbance, and anxiety; K40.90 Unilateral inguinal hernia, without obstruction or gangrene, not specified as recurrent; N40.0 Benign prostatic hyperplasia without lower urinary tract symptoms; Z72.0 Tobacco use
CPT/HCPCS: 36415; 80053; 81001; 82803; 84484; 85025; 87040; 93005; 93010; 97802; 99284

== ENCOUNTER 2018-08-01 00:54 | Outpatient (CLI) | payer OTHER ==
[2018-07-31 21:31] VITALS: BMI 17.4
== END 2018-08-01 00:59 ==
LOC: AMBL 00:54
PROVIDERS: ATTEND Internal Medicine Geriatric Medicine
DX: M54.9 Dorsalgia, unspecified (principal)